=== PATIENT | male | born 1950 | race Caucasian/White ===

== ENCOUNTER 2018-09-27 07:41 | Inpatient (IN) | payer OTHER ==
[~2018-09-27] VITALS: Ht 177.8 cm; Wt 108.0 kg
--- NOTE | 2018-09-27 07:54 | NUR ---
PTE REFIERE REFIERE TNER DIFICULTAD RESPIRATORIA DESDE EDD.
[2018-09-27] MEDS ORDERED: ISOSORBIDE DINI30 MG (07:56)
[2018-09-27] MEDS ORDERED: PREDNISOLONE SO10 MG (07:57)
[2018-09-27] MEDS ORDERED: CARVEDILOL12.5 MG (07:58)
[2018-09-27] MEDS ORDERED: ALLOPURINOL100 MG (07:58)
[2018-09-27] MEDS ORDERED: ATORVASTATIN CA40 MG (07:58)
[2018-09-27] MEDS ORDERED: ALDACTONE25 MG (07:59)
[2018-09-27] MEDS ORDERED: FUROSEMIDE20 MG (07:59)
[2018-09-27] MEDS ORDERED: COZAAR25 MG (08:00)
[2018-09-27] MEDS ORDERED: COUMADIN5 MG (08:00)
[2018-09-27] MEDS ORDERED: CILOSTAZOL100 MG (08:01)
[2018-09-27] MEDS ORDERED: SYNTHROID150 MCG (08:01)
[2018-09-27] MEDS ORDERED: MAXIMUM D310000 UNIT (08:01)
--- NOTE | 2018-09-27 08:43 | NUR ---
EVALUADO POR EL SE ORIENTA SOBRE TRAAMIENTO MEDICO Y LA UNIDAD DE CHEST PAIN, ALERTA, ORIENTADO POR GENNARO. CONECTADO A MONITOR CARDIACO. SE LE EXTRAEN MUESTRAS DE SAE Y SE ENVIAN AL LABORATORIO. SE MANTIENE EN OBSERVACION.
--- NOTE | 2018-09-27 15:18 | NUR ---
SE RECIBE PTE MASCULINO ALERTA Y ORIENTADO X3,ACOMPANADO DE FAMILIAR EN CAMA #18 CPU ER,CONECTADO A MONITOR CARDIACO EARLE,CON 2 H/L PATENTES LIBRES DE EDEMA Y ENROJECIMIENTO,SE CON .45SS@75 Y DRIP TRIDIL@6ML/HR,SE REALIZA B/P MANUAL CON RESULTADO DE 180/95,SE MANTIENE CON GREEN,Y SE MANTIENE PTE EN OBSERVACION POR CAMBIOS.
[2018-09-29] MEDS ORDERED: LOSARTAN POTASS50 MG PO (12:40)
[2018-09-29] MEDS ORDERED: Coreg 12.5MG TABLET PO (12:40)
[2018-09-29] MEDS ORDERED: LASIX20 MG PO (12:40)
[2018-09-29] MEDS ORDERED: SPIRONOLACTONE25 MG PO (12:40)
[2018-09-29] MEDS ORDERED: LIPITOR40 MG PO (12:40)
[2018-09-29] MEDS ORDERED: ZYLOPRIM100 M1 PO (12:40)
[2018-09-29] MEDS ORDERED: CILOSTAZOL100 MG PO (12:40)
[2018-09-29] MEDS ORDERED: LEVOTHYROXINE150 MCG PO (12:40)
[2018-09-29] MEDS ORDERED: COUMADIN5 MG PO (12:40)
[2018-09-29] MEDS ORDERED: ISOSORBIDE MONO30 MG PO (12:40)
[2018-09-29] MEDS ORDERED: POM (MEDICAMENTO EN PO (12:40)
[2018-09-29] MEDS ORDERED: PREDNISONE10 MG PO (12:40)
== END 2018-09-29 15:26 | disposition home or self-care (01) | DRG 291 ==
LOC: ER 07:41 → MEDJ 19:15 → SEC-K 19:15 → MEDI 19:56 → MEDJ 19:56
PROVIDERS: ADMIT Internal Medicine
PROC: 4A12X4Z Monitoring of Cardiac Electrical Activity, External Approach (ICD-10-PCS; principal; 2018-09-27)
PROC: 4A033R1 Measurement of Arterial Saturation, Peripheral, Percutaneous Approach (ICD-10-PCS; 2018-09-27)
PROC: B246ZZZ Ultrasonography of Right and Left Heart (ICD-10-PCS; 2018-09-27)
PROC: 3E0F7GC Introduction of Other Therapeutic Substance into Respiratory Tract, Via Natural or Artificial Opening (ICD-10-PCS; 2018-09-27)
DX: I13.0 Hypertensive heart and chronic kidney disease with heart failure and stage 1 through stage 4 chronic kidney disease, or unspecified chronic kidney disease (principal); I50.23 Acute on chronic systolic (congestive) heart failure; N17.8 Other acute kidney failure; N18.9 Chronic kidney disease, unspecified

== ENCOUNTER 2021-12-11 13:31 | Outpatient (CLI) | payer OTHER ==
[~2021-12-11 13:31] MED LIST: ALDACTONE25 MG; ALLOPURINOL100 MG; ATORVASTATIN CA40 MG; CARVEDILOL12.5 MG; CILOSTAZOL100 MG; CILOSTAZOL100 MG PO; COUMADIN5 MG; COUMADIN5 MG PO; COZAAR25 MG; Coreg 12.5MG TABLET PO; FUROSEMIDE20 MG; ISOSORBIDE DINI30 MG; ISOSORBIDE MONO30 MG PO; LASIX20 MG PO; LEVOTHYROXINE150 MCG PO; LIPITOR40 MG PO; LOSARTAN POTASS50 MG PO; MAXIMUM D310000 UNIT; POM (MEDICAMENTO EN PO; PREDNISOLONE SO10 MG; PREDNISONE10 MG PO; SPIRONOLACTONE25 MG PO; SYNTHROID150 MCG; ZYLOPRIM100 M1 PO
== END 2021-12-11 13:34 | disposition home or self-care (01) ==
LOC: SONOGRAMA 13:31
PROVIDERS: ATTEND Internal Medicine Nephrology
DX: N18.4 Chronic kidney disease, stage 4 (severe) (principal); N05.1 Unspecified nephritic syndrome with focal and segmental glomerular lesions; I73.9 Peripheral vascular disease, unspecified; N28.1 Cyst of kidney, acquired; R16.0 Hepatomegaly, not elsewhere classified; E88.09 Other disorders of plasma-protein metabolism, not elsewhere classified; R80.9 Proteinuria, unspecified; E78.5 Hyperlipidemia, unspecified; I12.9 Hypertensive chronic kidney disease with stage 1 through stage 4 chronic kidney disease, or unspecified chronic kidney disease; E66.9 Obesity, unspecified

== ENCOUNTER 2022-04-15 13:41 | Outpatient (CLI) | payer OTHER | END 2022-04-15 13:53 | disposition home or self-care (01) | LOC: LAB 13:41 → EKG 13:41 | DX: I11.9 Hypertensive heart disease without heart failure (principal) ==

== ENCOUNTER 2022-08-15 12:50 | Inpatient (IN) | payer OTHER ==
[~2022-08-15] VITALS: Ht 177.8 cm; Wt 113.4 kg
[2022-08-15] MEDS ORDERED: PEPCID AC20 MG PO (13:30)
[2022-08-15] MEDS ORDERED: AUGMENTIN125 MG/5 M (13:31)
[2022-08-15] MEDS ORDERED: ABATINEX680 MG PO (13:31)
== END 2022-08-23 14:20 | disposition home or self-care (01) | DRG 982 ==
LOC: ER 12:50 → SEC-K 18:37 → MEDI 18:37
PROVIDERS: ADMIT Internal Medicine; ATTEND Internal Medicine
PROC: 0JDN0ZZ Extraction of Right Lower Leg Subcutaneous Tissue and Fascia, Open Approach (ICD-10-PCS; principal; 2022-08-17)
PROC: 0JDN0ZZ Extraction of Right Lower Leg Subcutaneous Tissue and Fascia, Open Approach (ICD-10-PCS; 2022-08-21)
DX: E11.622 Type 2 diabetes mellitus with other skin ulcer (principal); L97.818 Non-pressure chronic ulcer of other part of right lower leg with other specified severity; L03.115 Cellulitis of right lower limb; B96.5 Pseudomonas (aeruginosa) (mallei) (pseudomallei) as the cause of diseases classified elsewhere; I13.0 Hypertensive heart and chronic kidney disease with heart failure and stage 1 through stage 4 chronic kidney disease, or unspecified chronic kidney disease; N17.9 Acute kidney failure, unspecified; E11.22 Type 2 diabetes mellitus with diabetic chronic kidney disease; E11.65 Type 2 diabetes mellitus with hyperglycemia; I50.9 Heart failure, unspecified; E03.8 Other specified hypothyroidism; E66.01 Morbid (severe) obesity due to excess calories; N18.9 Chronic kidney disease, unspecified; E11.51 Type 2 diabetes mellitus with diabetic peripheral angiopathy without gangrene; J44.9 Chronic obstructive pulmonary disease, unspecified; F17.200 Nicotine dependence, unspecified, uncomplicated; I48.0 Paroxysmal atrial fibrillation

== ENCOUNTER 2023-01-14 16:05 | Inpatient (IN) | payer OTHER ==
[~2023-01-14] VITALS: Ht 167.6 cm; Wt 81.6 kg
[~2023-01-14 16:05] MED LIST changes: +ABATINEX680 MG PO; +AUGMENTIN125 MG/5 M; +PEPCID AC20 MG PO
--- NOTE | 2023-01-14 16:42 | NUR ---
PACIENTE ALERTA Y ORIENTADO POR 3 EN COMPANIA DE FAMILIAR QUIEN REFIERE CELULITIS EN MELANIE DIAZ. ADEMAS DICE QUE TIENE LOS NIVELES DE VANCOMICION ALTOS.
--- NOTE | 2023-01-14 17:27 | NUR ---
MS KAYCE ORIENTA PTE SOBRE TX MEDICO EL CUAL REFIERE ENTENDER.SE LE EXTRAEN MUESTRAS BAJO MEDIDAS ASEPTICAS,SE CANALIZA Y SE COLOCAN FLUIDOS DE MANTENIMIENTO.
== END 2023-01-27 19:00 | disposition home or self-care (01) | DRG 571 ==
LOC: ER 16:05 → MEDI 20:04 → MEDJ 01-23 21:58
PROVIDERS: ADMIT Specialist; ATTEND Specialist
PROC: 0JBN0ZZ Excision of Right Lower Leg Subcutaneous Tissue and Fascia, Open Approach (ICD-10-PCS; principal; 2023-01-15)
PROC: BQ37ZZZ Magnetic Resonance Imaging (MRI) of Right Knee (ICD-10-PCS; 2023-01-15)
PROC: 2W1QX6Z Compression of Right Lower Leg using Pressure Dressing (ICD-10-PCS; 2023-01-17)
PROC: 0JDN0ZZ Extraction of Right Lower Leg Subcutaneous Tissue and Fascia, Open Approach (ICD-10-PCS; 2023-01-22)
PROC: 8E0ZXY6 Isolation (ICD-10-PCS; 2023-01-24)
DX: L97.819 Non-pressure chronic ulcer of other part of right lower leg with unspecified severity (principal); A04.72 Enterocolitis due to Clostridium difficile, not specified as recurrent; L03.115 Cellulitis of right lower limb; N18.4 Chronic kidney disease, stage 4 (severe); L02.415 Cutaneous abscess of right lower limb; B95.61 Methicillin susceptible Staphylococcus aureus infection as the cause of diseases classified elsewhere; I73.89 Other specified peripheral vascular diseases; I13.10 Hypertensive heart and chronic kidney disease without heart failure, with stage 1 through stage 4 chronic kidney disease, or unspecified chronic kidney disease; E66.01 Morbid (severe) obesity due to excess calories; Z68.34 Body mass index [BMI] 34.0-34.9, adult; E03.9 Hypothyroidism, unspecified; I25.10 Atherosclerotic heart disease of native coronary artery without angina pectoris; I48.0 Paroxysmal atrial fibrillation; Z79.01 Long term (current) use of anticoagulants; Z95.828 Presence of other vascular implants and grafts
CPT/HCPCS: 73725

== ENCOUNTER 2023-03-04 12:00 | Inpatient (IN) | payer OTHER ==
[~2023-03-04] VITALS: Ht 177.8 cm; Wt 111.1 kg
--- NOTE | 2023-03-04 12:32 | NUR ---
SE RECIBE PTE ALERTA Y ORIENTADO X3 EL MISMO REFIERE PRESENTAR CELULITIS EN AMBAS DIAMOND, SE OBSERVA MANO IZQUIERDA CON EDEMAS PRESENTE Y HEMATOMA EN MANO DERECHA.
--- NOTE | 2023-03-04 14:48 | NUR ---
PTE ALERTA,ESTABLE Y ORIENTADO.SE EDUCA SOBRE EL TRATAMIENTO QUE RECIBIRA EN EL HOSPITAL Y [facility] REFIERE ENTENDER.SE LE DIEGO MUESTRAS DE SAE Y SE LE ADMINISTRA MEDICAMENTOS HAL [facility]DEN MEDICA
== END 2023-03-07 14:07 | disposition home or self-care (01) | DRG 603 ==
LOC: ER 12:00 → MEDI 21:48
PROVIDERS: Emergency Medicine; Internal Medicine Infectious Disease; ADMIT Specialist; ATTEND Specialist
PROC: B54MZZZ Ultrasonography of Right Upper Extremity Veins (ICD-10-PCS; 2023-03-04)
PROC: BP3LZZZ Magnetic Resonance Imaging (MRI) of Right Wrist (ICD-10-PCS; principal; 2023-03-05)
DX: L03.113 Cellulitis of right upper limb (principal); L97.819 Non-pressure chronic ulcer of other part of right lower leg with unspecified severity; I12.9 Hypertensive chronic kidney disease with stage 1 through stage 4 chronic kidney disease, or unspecified chronic kidney disease; N18.9 Chronic kidney disease, unspecified; Z22.321 Carrier or suspected carrier of Methicillin susceptible Staphylococcus aureus; I10 Essential (primary) hypertension; E66.01 Morbid (severe) obesity due to excess calories; Z68.35 Body mass index [BMI] 35.0-35.9, adult
CPT/HCPCS: 73218

== ENCOUNTER 2023-08-19 12:27 | Inpatient (IN) | payer OTHER ==
[~2023-08-19] VITALS: Ht 180.3 cm; Wt 104.3 kg
--- NOTE | 2023-08-19 13:29 | NUR ---
PACIENTE ALERTA Y ORIENTADO X3. SE ENCUENTRA ACOMPANADO DE ESPOSA. PACIENTE REFIERE ASFIXIA Y PRESENTA SATURACION BAJA (80%). PACIENTE REFIERE QUE ES PACIENTE RENAL E HIPERTENSO. ADEMAS, REFIERE QUE NO ES PACIENTE DE COPD. SE LE REALIZA EKG, SE ESTIMAN VITALES Y SE UBICA A PACIENTE EN AREA DE CUIDADO CRITICO.
[2023-08-19] MEDS ORDERED: METHYLPREDNISOLONE SOD SUCC 125 MG VIAL IV STA ×2 (14:25→14:33)
[2023-08-19] MEDS ORDERED: FAMOtidine 10 MG/ML (4ML VIAL) IV STA (14:31)
--- NOTE | 2023-08-19 14:37 | NUR ---
SE RECIBE PACIENTE MASCULINO ALERTA Y ORIENTADO EN PERSONA. SE LE COLOCA EN CAMA #1 CON BARANDAS ELEVADAS. SE CONECTA A MONITOR CARDICO, OXIMETRIA DE PULSO Y CANULA NASAL A 3LT/MIN. SE CANALIZA EN BRAZO DERECHO CON ANGIO #18 Y SE LE COLOCA HEPARIN LOCK Y LA SEGUNDA VENOPUNCION SE CANALIZA CON ANGIO #20 Y SE LE COLOCA HEPARIN LOCK, PATENTES LIBRES DE EDEMA Y ENROJECIMIENTO. SE LE DIEGO LAS MUETRAS Y SE LE ADMNISTRAN LOS MEDICAMENTOS HAL LA ORDEN MEDICA. SE LE INSERTA GREEN CON MEDIDAS AEPTICAS Y ESTERILES #16, SE OBSERVA ORINA COLOR MEG. SE OBSERVA POR CAMBIOS.
[2023-08-19] MEDS ORDERED: MAGNESIUM SULFATE 1,000 MG in 0.9 % SODIUM CHLORIDE 50 ML IV ONE (14:45)
[2023-08-19] MEDS ORDERED: LEVALBUTEROL HCL 1.25 MG/3 ML SOLUTION IH SCH ×2 (14:45→16:00)
[2023-08-19 14:46] LABS: ABG PH 7.226 (7.35-7.45)
[2023-08-19 14:47] LABS: ABG pCO2 70.2 mmHg (35-45)
[2023-08-19 14:48] LABS: ABG PO2 39.5 mmHg (80-100); BASE EXCESS -1.1 mmol/l; BICARBONATE 28.5 mmol/l (23-25); SaO2 62.3 %; Tco2 30.6 mmol/l; o2 21 %
[2023-08-19 14:49] LABS: allen test SATISFACTORY; puncture site RADIAL RIGHT
[2023-08-19 15:00] LABS: HEMATOCRIT 45.7 % (39.0-48.0); HEMOGLOBIN 14.5 g/dL (13-16.00); MEAN CELL VOLUME 101.7 fL (80.0-100.00); MEAN CORPUSCULAR HEMOGLOBIN 32.3 pg (27.00-32.0); MEAN CORPUSCULAR HGB CONC 31.7 g/dl (32.0-36.0); PLATELET COUNT 338 K/uL (150-450); RED BLOOD COUNT 4.49 M/uL (4.00-6.00); RED CELL DISTRIBUTION WIDTH 16.2 % (11.5-14.5)
--- NOTE | 2023-08-19 15:00 | NUR ---
SE RECIBE PACIENTE DE TURNO ANTERIOR ALERTA Y ORIENTADO X3, CONECTADO A MONITOR CARDIACO Y OXIMETRIA DE PULSO. SE OBSERVA CON CANULA NASAL A 3LT/MIN; PRESENTANDO SPO2 82%. CANALIZADO X2 EN BRAZO DERECHO; LAS MISMAS SE OBSERVAN PATENTES,LIBRES DE EDEMA O ERITEMA. AL MOMENTO SIN IV FLUIDS. GREEN A GRAVEDAD CON EGRESO URINARIO APROXIMADO DE 200ML COLOR AMARILLO WILBER.
[2023-08-19 15:16] LABS: ALBUMIN 2.9 gm/dL (3.4-5.0); BILIRUBIN TOTAL 0.39 mg/dL (0.3-1.2); BILIRUBIN,CONJUGATED 0.13 mg/dL (0.0-0.2); BILIRUBIN,UNCONJUGATED 0.26 mg/dL (0.0-0.6); CALCIUM 9.2 mg/dL (8.5-10.1); GFR 13.08; GLOBULINA 5.3 G/DL (2.4-3.5); POTASSIUM 4.72 mEq/L (3.5-5.1); TOTAL PROTEIN 8.2 gm/dL (6.4-8.2)
[2023-08-19 15:36] LABS: CREATININE SERUM 4.46 mg/dL (0.70-1.30)
[2023-08-19 15:43] LABS: PROTHROMBIN TIME 11.1 SECONDS (9.0-11.5)
[2023-08-19 15:44] LABS: INR 1.06; PARTIAL THROMBOPLASTIN TIME 31.5 SECONDS (22.0-34.0)
[2023-08-19 15:47] LABS: URINE APPEARANCE Clear; URINE BILIRRUBIN Negative (NEGATIVE); URINE BLOOD Negative; URINE COLOR Yellow; URINE LEUKOCYTE Negative; URINE NITRATE Negative; URINE PROTEIN >=1000 (NEGATIVE); URINE UROBILINOGEN 0.2 E.U./dl
[2023-08-19 15:51] LABS: URINE BACTERIA 28.9 uL (0.0-1933); URINE EPITHELIAL CELLS 5.2 uL (0.0-38.8); URINE GLUCOSE 100 MG/DL (NEGATIVE); URINE WBC 14.6 uL (0.0-23.2)
[2023-08-19] MEDS ORDERED: cloNIDine HCL 0.2 MG TABLET PO ONE (16:00)
[2023-08-19] MEDS ORDERED: NITROGLYCERIN IN 5 % DEXTROSE 250 ML IV SCH (17:30)
[2023-08-19 17:58] LABS: CALCIUM 8.9 mg/dL (8.5-10.1); POTASSIUM 5.11 mEq/L (3.5-5.1)
--- NOTE | 2023-08-19 18:00 | NUR ---
SE COLECTAN MUESTRAS DE LABORATORIO HAL ORDEN MEDICA Y MEDIANTE MEDIDAS ASEPTICAS. SE COMIENZA JULI WARD.
[2023-08-19 18:01] LABS: GFR 13.87
[2023-08-19 18:06] LABS: CREATININE SERUM 4.24 mg/dL (0.70-1.30)
[2023-08-19] MEDS ORDERED: IPRATROPIUM BROMIDE 0.5 MG/2.5 ML AMPUL.NEB IH SCH (18:37)
[2023-08-19] MEDS ORDERED: ATORVASTATIN CALCIUM 40 MG TABLET PO SCH (18:41)
[2023-08-19] MEDS ORDERED: ACETAMINOPHEN 500 MG GEL..CAP PO PRN (18:45)
[2023-08-19] MEDS ORDERED: ONDANSETRON HCL 4 MG in 0.9 % SODIUM CHLORIDE 50 ML IV PRN (18:45)
[2023-08-19] MEDS ORDERED: INSULIN LISPRO 1,000 UNIT/10 ML UNITS SUBCUTANEO PRN (19:00)
[2023-08-19] MEDS ORDERED: DEXTROSE 50 % IN WATER 0.5 G/ML DISP.SYRIN IV PRN (19:00)
[2023-08-19] MEDS ORDERED: PROPOFOL 10,000 MCG/ML VIAL IV STA (19:21)
[2023-08-19] MEDS ORDERED: PROPOFOL 100 ML IV SCH (19:30)
[2023-08-19] MEDS ORDERED: ENOXAPARIN SODIUM 100 MG/ML SYRINGE SUBCUTANEO SCH (21:00)
[2023-08-19 22:15] LABS: ABG PH 7.102 (7.35-7.45)
[2023-08-19 22:16] LABS: ABG PO2 82.8 mmHg (80-100); ABG pCO2 92.4 mmHg (35-45); BASE EXCESS -4.2 mmol/l; BICARBONATE 28.1 mmol/l (23-25); SaO2 90.1 %
[2023-08-19 22:17] LABS: allen test SATISFACTORY; o2 100 %; puncture site RADIAL RIGHT
[2023-08-19 22:17] LABS: ABG PH 7.092 (7.35-7.45)
[2023-08-19 22:18] LABS: BASE EXCESS -4.3 mmol/l; BICARBONATE 28.3 mmol/l (23-25); SaO2 89.6 %; Tco2 31.2 mmol/l
[2023-08-19 22:20] LABS: allen test SATISFACTORY; o2 100 %; puncture site RADIAL RIGHT
[2023-08-19 22:20] LABS: ABG PH 7.167 (7.35-7.45); ABG PO2 230.9 mmHg (80-100); ABG pCO2 66.3 mmHg (35-45)
[2023-08-19 22:21] LABS: BASE EXCESS -6.4 mmol/l; BICARBONATE 23.5 mmol/l (23-25); SaO2 99.5 %; Tco2 25.5 mmol/l
[2023-08-19 22:22] LABS: allen test SATISFACTORY; o2 100 %; puncture site RADIAL RIGHT
[2023-08-20] MEDS ORDERED: FUROsemide 20 MG/2 ML VIAL IV SCH ×2 (01:00→09:00)
[2023-08-20] MEDS ORDERED: LEVOTHYROXINE SODIUM 150 MCG TABLET PO SCH (06:00)
[2023-08-20] MEDS ORDERED: HYDROCORTISONE SODIUM SUCC/PF 100 MG VIAL IV STA (07:12)
[2023-08-20 08:41] LABS: ABG PH 7.371 (7.35-7.45); ABG PO2 88.8 mmHg (80-100); ABG pCO2 38.7 mmHg (35-45); BASE EXCESS -2.9 mmol/l; SaO2 96.4 %; Tco2 23.1 mmol/l
[2023-08-20 08:42] LABS: allen test SATISFACTORY; o2 60 %; puncture site RADIAL RIGHT
[2023-08-20] MEDS ORDERED: FAMOTIDINE/PF 20 MG in 0.9 % SODIUM CHLORIDE 8 ML IV PUSH SCH (09:00)
[2023-08-20] MEDS ORDERED: PREDNISONE 10 MG TABLET PO SCH (09:00)
[2023-08-20] MEDS ORDERED: ENOXAPARIN SODIUM 30 MG/0.3 ML SYRINGE SUBCUTANEO SCH (09:00)
[2023-08-20] MEDS ORDERED: HYDROCORTISONE SODIUM SUCC/PF 100 MG VIAL IV SCH ×2 (12:00→17:00)
[2023-08-20] MEDS ORDERED: CEFEPIME HCL 1,000 MG VIAL IV SCH (14:17)
[2023-08-20] MEDS ORDERED: LINEZOLID IN DEXTROSE 5% 300 ML IV SCH (17:00)
[2023-08-21 06:22] LABS: HEMATOCRIT 37.1 % (39.0-48.0); HEMOGLOBIN 12.2 g/dL (13-16.00); MEAN CELL VOLUME 97.4 fL (80.0-100.00); MEAN CORPUSCULAR HEMOGLOBIN 32.1 pg (27.00-32.0); PLATELET COUNT 290 K/uL (150-450); RED BLOOD COUNT 3.81 M/uL (4.00-6.00); RED CELL DISTRIBUTION WIDTH 15.6 % (11.5-14.5)
[2023-08-21 07:14] LABS: ALBUMIN 2.4 gm/dL (3.4-5.0); BILIRUBIN TOTAL 0.4 mg/dL (0.3-1.2); CALCIUM 8.6 mg/dL (8.5-10.1); GFR 12.75; GLOBULINA 3.2 G/DL (2.4-3.5); POTASSIUM 4.33 mEq/L (3.5-5.1); TOTAL PROTEIN 5.6 gm/dL (6.4-8.2)
[2023-08-21 07:25] LABS: ABG PH 7.456 (7.35-7.45); ABG pCO2 32.7 mmHg (35-45)
[2023-08-21 07:26] LABS: ABG PO2 96.3 mmHg (80-100); BASE EXCESS -0.5 mmol/l; BICARBONATE 22.5 mmol/l (23-25); SaO2 97.8 %; Tco2 23.5 mmol/l; allen test SATISFACTORY; o2 60 %; puncture site RADIAL LEFT
[2023-08-21 07:37] LABS: CREATININE SERUM 4.56 mg/dL (0.70-1.30)
[2023-08-21] MEDS ORDERED: CHLORHEXIDINE GLUCONATE 120 ML BOTTLE TOP ONE (08:29)
[2023-08-21] MEDS ORDERED: hydrALAZINE HCL 20 MG VIAL IV PRN (10:30)
[2023-08-21] MEDS ORDERED: HYDROCORTISONE SODIUM SUCC/PF 100 MG VIAL IV SCH (17:00)
[2023-08-21] MEDS ORDERED: HEPARIN SODIUM,PORCINE 500 UNITS/5 ML VIAL IV ONE ×2 (22:54→23:37)
[2023-08-21] MEDS ORDERED: LIDOCAINE HCL 100 MG/10ML VIAL ONE (23:01)
[2023-08-22] MEDS ORDERED: LEVOTHYROXINE SODIUM 175 MCG TABLET PO SCH (06:00)
[2023-08-22 06:24] LABS: ABG PH 7.425 (7.35-7.45); ABG PO2 170.8 mmHg (80-100); ABG pCO2 35.6 mmHg (35-45); BICARBONATE 22.8 mmol/l (23-25); SaO2 99.5 %; Tco2 23.9 mmol/l; allen test SATISFACTORY; o2 60 %; puncture site RADIAL LEFT
[2023-08-22 07:18] LABS: HEMATOCRIT 34.6 % (39.0-48.0); HEMOGLOBIN 11.5 g/dL (13-16.00); MEAN CELL VOLUME 97.6 fL (80.0-100.00); MEAN CORPUSCULAR HEMOGLOBIN 32.4 pg (27.00-32.0); MEAN CORPUSCULAR HGB CONC 33.2 g/dl (32.0-36.0); PLATELET COUNT 276 K/uL (150-450); RED BLOOD COUNT 3.55 M/uL (4.00-6.00); RED CELL DISTRIBUTION WIDTH 16.1 % (11.5-14.5)
[2023-08-22 07:30] LABS: CALCIUM 8.2 mg/dL (8.5-10.1); GFR 12.72; POTASSIUM 4.03 mEq/L (3.5-5.1)
[2023-08-22 07:37] LABS: CREATININE SERUM 4.57 mg/dL (0.70-1.30)
[2023-08-22] MEDS ORDERED: ENOXAPARIN SODIUM 100 MG/ML SYRINGE SUBCUTANEO SCH (09:00)
[2023-08-22] MEDS ORDERED: CHLORHEXIDINE GLUCONATE 15ML BRUSH KIT MM SCH (09:00)
[2023-08-22] MEDS ORDERED: POLYVINYL ALCOHOL 15 ML DROPS OP SCH (09:00)
[2023-08-22 21:58] LABS: PLEURAL FLUID APPEARANCE CRYSTAL CLEAR; PLEURAL FLUID COLOR YELLOW
[2023-08-22 22:10] LABS: TP PLEURAL FLUID 2.4 g/dl
[2023-08-22 22:50] LABS: MONONUCLEAR 88 %; POLYMORPHONUCLEAR 12 %
[2023-08-23 07:00] LABS: ABG PH 7.429 (7.35-7.45); ABG PO2 77.2 mmHg (80-100); ABG pCO2 33.5 mmHg (35-45); BASE EXCESS -1.8 mmol/l; BICARBONATE 21.6 mmol/l (23-25); Tco2 22.7 mmol/l; o2 50 %
[2023-08-23 07:01] LABS: allen test SATISFACTORY; puncture site RADIAL LEFT
[2023-08-23 07:03] LABS: SaO2 95.6 %
[2023-08-24 06:40] LABS: ABG PH 7.395 (7.35-7.45); ABG PO2 101.4 mmHg (80-100); ABG pCO2 37.8 mmHg (35-45); BASE EXCESS -1.9 mmol/l
[2023-08-24 06:41] LABS: BICARBONATE 22.6 mmol/l (23-25); Tco2 23.8 mmol/l; allen test SATISFACTORY; o2 40 %; puncture site RADIAL LEFT
[2023-08-24 06:43] LABS: SaO2 97.7 %
[2023-08-24 07:42] LABS: ALBUMIN 2.2 gm/dL (3.4-5.0); BILIRUBIN TOTAL 0.46 mg/dL (0.3-1.2); CALCIUM 7.9 mg/dL (8.5-10.1); GFR 14.42; POTASSIUM 3.74 mEq/L (3.5-5.1); TOTAL PROTEIN 5.2 gm/dL (6.4-8.2)
[2023-08-24 08:24] LABS: CREATININE SERUM 4.1 mg/dL (0.70-1.30)
[2023-08-24 08:57] LABS: HEMATOCRIT 30.9 % (39.0-48.0); HEMOGLOBIN 10.4 g/dL (13-16.00); MEAN CELL VOLUME 96.7 fL (80.0-100.00); MEAN CORPUSCULAR HEMOGLOBIN 32.6 pg (27.00-32.0); MEAN CORPUSCULAR HGB CONC 33.7 g/dl (32.0-36.0); PLATELET COUNT 166 K/uL (150-450); RED CELL DISTRIBUTION WIDTH 15.2 % (11.5-14.5)
[2023-08-24 11:52] LABS: ABG PH 7.354 (7.35-7.45); ABG PO2 92.7 mmHg (80-100); ABG pCO2 42.3 mmHg (35-45); BASE EXCESS -2.4 mmol/l; BICARBONATE 23.1 mmol/l (23-25); SaO2 96.6 %; Tco2 24.4 mmol/l; allen test SATISFACTORY; puncture site RADIAL RIGHT
[2023-08-24 11:53] LABS: o2 50 %
[2023-08-24] MEDS ORDERED: KETOROLAC TROMETHAMINE 30 MG VIAL IV PRN (20:45)
[2023-08-25 05:41] LABS: HEMATOCRIT 30.8 % (39.0-48.0); HEMOGLOBIN 10.4 g/dL (13-16.00); MEAN CELL VOLUME 98.1 fL (80.0-100.00); MEAN CORPUSCULAR HGB CONC 33.7 g/dl (32.0-36.0); PLATELET COUNT 189 K/uL (150-450); RED BLOOD COUNT 3.14 M/uL (4.00-6.00); RED CELL DISTRIBUTION WIDTH 14.8 % (11.5-14.5)
[2023-08-25 07:00] LABS: CALCIUM 7.9 mg/dL (8.5-10.1); GFR 12.59; POTASSIUM 3.88 mEq/L (3.5-5.1)
[2023-08-25 07:14] LABS: CREATININE SERUM 4.61 mg/dL (0.70-1.30)
[2023-08-25] MEDS ORDERED: METOPROLOL SUCCINATE 25 MG TAB.SR.24H PO SCH (09:00)
[2023-08-25] MEDS ORDERED: ISOSORBIDE DINITRATE 10 MG TABLET PO SCH (09:00)
[2023-08-25] MEDS ORDERED: NICOTINE TD SCH (12:00)
[2023-08-25] MEDS ORDERED: CLONAZEPAM 0.5 MG TABLET PO SCH (21:00)
[2023-08-26] MEDS ORDERED: PREDNISONE 10 MG TABLET PO SCH (09:00)
[2023-08-27 17:32] LABS: INR 1.08; PARTIAL THROMBOPLASTIN TIME 35.2 SECONDS (22.0-34.0); PROTHROMBIN TIME 11.3 SECONDS (9.0-11.5)
[2023-08-27 21:58] LABS: ABG PH 7.368 (7.35-7.45); ABG PO2 79.3 mmHg (80-100); ABG pCO2 40.7 mmHg (35-45)
[2023-08-27 21:59] LABS: BASE EXCESS -2.3 mmol/l; BICARBONATE 22.9 mmol/l (23-25); Tco2 24.1 mmol/l; allen test SATISFACTORY; o2 21 %; puncture site RADIAL LEFT
[2023-08-28] MEDS ORDERED: HEPARIN SODIUM,PORCINE 500 UNITS/5 ML VIAL IV ONE (19:42)
[2023-08-28] MEDS ORDERED: HEPARIN SODIUM,PORCINE 5,000 UNITS/ML VIAL IV ONE (21:00)
[2023-08-29 06:19] LABS: HEMATOCRIT 29.6 % (39.0-48.0); HEMOGLOBIN 9.8 g/dL (13-16.00); MEAN CELL VOLUME 97.4 fL (80.0-100.00); MEAN CORPUSCULAR HEMOGLOBIN 32.1 pg (27.00-32.0); PLATELET COUNT 202 K/uL (150-450); RED BLOOD COUNT 3.04 M/uL (4.00-6.00); RED CELL DISTRIBUTION WIDTH 15.1 % (11.5-14.5)
[2023-08-29 07:19] LABS: ALBUMIN 2.5 gm/dL (3.4-5.0); BILIRUBIN TOTAL 0.97 mg/dL (0.3-1.2); CALCIUM 8.5 mg/dL (8.5-10.1); GFR 13.54; GLOBULINA 3.5 G/DL (2.4-3.5); POTASSIUM 3.8 mEq/L (3.5-5.1)
[2023-08-29 07:56] LABS: CREATININE SERUM 4.33 mg/dL (0.70-1.30)
[2023-08-29] MEDS ORDERED: TUBERCULIN,PURIF.PROT.DERIV. 10 SKIN.TEST SKIN.TEST ID NR (08:00)
[2023-08-29] MEDS ORDERED: PREDNISONE 5 MG TABLET PO SCH (09:00)
[2023-08-29] MEDS ORDERED: ALPRAzolam 0.25 MG TABLET PO SCH (09:00)
[2023-08-29 12:19] LABS: ABG PH 7.401 (7.35-7.45); ABG pCO2 37.4 mmHg (35-45); BASE EXCESS -1.6 mmol/l; BICARBONATE 22.7 mmol/l (23-25); Tco2 23.8 mmol/l; allen test SATISFACTORY; o2 100 %; puncture site RADIAL LEFT
[2023-08-29] MEDS ORDERED: VANCOMYCIN HCL 1,000 MG VIAL IV ONE (14:15)
[2023-08-29 16:45] LABS: CKMB 3.6 NG/ML (0.5-3.6)
[2023-08-29] MEDS ORDERED: VANCOMYCIN HCL 500 MG VIAL IV SCH (17:00)
[2023-08-29] MEDS ORDERED: MEROPENEM 500 MG/VIAL VIAL IV SCH (17:00)
[2023-08-30 07:26] LABS: HEMATOCRIT 26.7 % (39.0-48.0); MEAN CELL VOLUME 97.7 fL (80.0-100.00); MEAN CORPUSCULAR HEMOGLOBIN 32.8 pg (27.00-32.0); MEAN CORPUSCULAR HGB CONC 33.6 g/dl (32.0-36.0); PLATELET COUNT 229 K/uL (150-450); RED BLOOD COUNT 2.74 M/uL (4.00-6.00)
[2023-08-30] MEDS ORDERED: SENNOSIDES 8.8 MG/5 ML ML PO SCH (11:00)
[2023-08-30] MEDS ORDERED: LACTULOSE 20 G/30 ML BLIST.PACK PO SCH (11:19)
[2023-08-30] MEDS ORDERED: MAGNESIUM HYDROXIDE 30 ML BLIST.PACK PO SCH (11:20)
[2023-08-30] MEDS ORDERED: MINERAL OIL 30 ML BLIST.PACK PO SCH (11:20)
[2023-08-30 12:11] LABS: hav igm Negative (Negative); hcv Non Reactive (Non Reactive); hep b c Negative (Negative)
[2023-08-30 12:25] LABS: ABG PH 7.391 (7.35-7.45); ABG PO2 225.6 mmHg (80-100); ABG pCO2 34.8 mmHg (35-45); BASE EXCESS -3.5 mmol/l; BICARBONATE 20.7 mmol/l (23-25); SaO2 99.8 %; Tco2 21.7 mmol/l
[2023-08-30 12:26] LABS: allen test SATISFACTORY; o2 60 %; puncture site RADIAL LEFT
[2023-08-31] MEDS ORDERED: 0.9 % SODIUM CHLORIDE 1,000 ML IV SCH (11:45)
[2023-08-31] MEDS ORDERED: COSYNTROPIN 0.25 MG VIAL IV ONE (12:00)
[2023-08-31] MEDS ORDERED: CLONAZEPAM 0.5 MG TABLET PO SCH (21:00)
[2023-08-31] MEDS ORDERED: PREDNISONE 10 MG TABLET PO STA (21:31)
[2023-09-01] MEDS ORDERED: PREDNISONE 5 MG TABLET PO SCH (09:00)
[2023-09-01] MEDS ORDERED: PREDNISONE 10 MG TABLET PO SCH (09:00)
[2023-09-01 12:22] LABS: MEAN CELL VOLUME 98.4 fL (80.0-100.00); MEAN CORPUSCULAR HGB CONC 32.9 g/dl (32.0-36.0); PLATELET COUNT 291 K/uL (150-450); RED BLOOD COUNT 2.18 M/uL (4.00-6.00); RED CELL DISTRIBUTION WIDTH 15.2 % (11.5-14.5)
[2023-09-01 12:29] LABS: MEAN CORPUSCULAR HEMOGLOBIN 32.5 pg (27.00-32.0)
[2023-09-01 12:30] LABS: HEMATOCRIT 21.5 % (39.0-48.0)
[2023-09-01 12:32] LABS: HEMOGLOBIN 7.1 g/dL (13-16.00)
[2023-09-01 13:00] LABS: ALBUMIN 2.2 gm/dL (3.4-5.0); BILIRUBIN TOTAL 1.2 mg/dL (0.3-1.2); CALCIUM 8.3 mg/dL (8.5-10.1); GFR 8.59; GLOBULINA 3.4 G/DL (2.4-3.5); POTASSIUM 5.1 mEq/L (3.5-5.1); TOTAL PROTEIN 5.6 gm/dL (6.4-8.2)
[2023-09-01 13:47] LABS: CREATININE SERUM 6.42 mg/dL (0.70-1.30)
[2023-09-01 14:41] LABS: PLATELET ESTIMATE NORMAL (NORMAL)
[2023-09-01] MEDS ORDERED: ANIDULAFUNGIN 100 MG VIAL IV ONE (15:30)
[2023-09-01 19:58] LABS: PH,URINE 5.5 (5.0-8.0); URINE APPEARANCE Turbid; URINE BILIRRUBIN Negative (NEGATIVE); URINE BLOOD Large; URINE COLOR Dark Yellow; URINE GLUCOSE Negative (NEGATIVE); URINE LEUKOCYTE Large; URINE NITRATE Negative
[2023-09-01 20:02] LABS: HEMATOCRIT 25.3 % (39.0-48.0); MEAN CELL VOLUME 94.1 fL (80.0-100.00); MEAN CORPUSCULAR HEMOGLOBIN 31.5 pg (27.00-32.0); MEAN CORPUSCULAR HGB CONC 33.5 g/dl (32.0-36.0); PLATELET COUNT 243 K/uL (150-450); RED BLOOD COUNT 2.69 M/uL (4.00-6.00); RED CELL DISTRIBUTION WIDTH 16.7 % (11.5-14.5); URINE EPITHELIAL CELLS 189.3 uL (0.0-38.8); URINE RBC 1588.6 uL (0.0-20.8)
[2023-09-01 20:03] LABS: HEMOGLOBIN 8.5 g/dL (13-16.00)
[2023-09-01 20:15] LABS: URINE PROTEIN 300 (NEGATIVE); URINE WBC > 5548.3 uL (0.0-23.2); URINE YEAST FEW /hpf
[2023-09-02 07:08] LABS: MEAN CELL VOLUME 94.9 fL (80.0-100.00); MEAN CORPUSCULAR HGB CONC 33.5 g/dl (32.0-36.0); PLATELET COUNT 222 K/uL (150-450); RED BLOOD COUNT 2.41 M/uL (4.00-6.00); RED CELL DISTRIBUTION WIDTH 17.1 % (11.5-14.5)
[2023-09-02 07:11] LABS: HEMATOCRIT 22.9 % (39.0-48.0); MEAN CORPUSCULAR HEMOGLOBIN 31.9 pg (27.00-32.0)
[2023-09-02 07:15] LABS: HEMOGLOBIN 7.7 g/dL (13-16.00)
[2023-09-02 07:36] LABS: ALBUMIN 2.1 gm/dL (3.4-5.0); BILIRUBIN TOTAL 1.23 mg/dL (0.3-1.2); CALCIUM 7.8 mg/dL (8.5-10.1); CREATININE SERUM 3.57 mg/dL (0.70-1.30); GFR 16.91; GLOBULINA 2.9 G/DL (2.4-3.5); POTASSIUM 3.97 mEq/L (3.5-5.1)
[2023-09-02] MEDS ORDERED: ANIDULAFUNGIN 100 MG VIAL IV SCH (17:00)
[2023-09-02] MEDS ORDERED: QUETIAPINE FUMARATE 25 MG TABLET PO SCH (21:00)
[2023-09-03 06:39] LABS: HEMATOCRIT 24.5 % (39.0-48.0); MEAN CORPUSCULAR HGB CONC 33.6 g/dl (32.0-36.0); PLATELET COUNT 231 K/uL (150-450); RED BLOOD COUNT 2.52 M/uL (4.00-6.00); RED CELL DISTRIBUTION WIDTH 17.1 % (11.5-14.5)
[2023-09-03 06:42] LABS: MEAN CORPUSCULAR HEMOGLOBIN 32.5 pg (27.00-32.0)
[2023-09-03 06:43] LABS: HEMOGLOBIN 8.2 g/dL (13-16.00)
[2023-09-03] MEDS ORDERED: PREDNISONE 5 MG TABLET PO SCH (09:00)
[2023-09-03 09:02] LABS: ABG PH 7.314 (7.35-7.45); ABG PO2 152.6 mmHg (80-100); BASE EXCESS 0.4 mmol/l; BICARBONATE 27.8 mmol/l (23-25); SaO2 99.1 %; Tco2 29.5 mmol/l; allen test SATISFACTORY; o2 50 %; puncture site RADIAL LEFT
[2023-09-03 17:22] LABS: HEMATOCRIT 31.4 % (39.0-48.0); HEMOGLOBIN 10.5 g/dL (13-16.00); MEAN CORPUSCULAR HEMOGLOBIN 31.5 pg (27.00-32.0); MEAN CORPUSCULAR HGB CONC 33.5 g/dl (32.0-36.0); PLATELET COUNT 155 K/uL (150-450); RED BLOOD COUNT 3.34 M/uL (4.00-6.00); RED CELL DISTRIBUTION WIDTH 16.9 % (11.5-14.5)
[2023-09-04 06:08] LABS: HEMOGLOBIN 10.4 g/dL (13-16.00); MEAN CELL VOLUME 94.9 fL (80.0-100.00); MEAN CORPUSCULAR HEMOGLOBIN 31.8 pg (27.00-32.0); MEAN CORPUSCULAR HGB CONC 33.5 g/dl (32.0-36.0); PLATELET COUNT 172 K/uL (150-450); RED BLOOD COUNT 3.26 M/uL (4.00-6.00)
[2023-09-04 06:48] LABS: ALBUMIN 2.1 gm/dL (3.4-5.0); BILIRUBIN TOTAL 1.77 mg/dL (0.3-1.2); CALCIUM 8.1 mg/dL (8.5-10.1); CREATININE SERUM 2.78 mg/dL (0.70-1.30); GFR 22.57; GLOBULINA 3.2 G/DL (2.4-3.5); MAGNESIUM 2.3 mg/dL (1.8-2.4); PHOSPHOROUS 3.9 mg/dL (2.5-4.9); TOTAL PROTEIN 5.3 gm/dL (6.4-8.2)
[2023-09-04 06:51] LABS: C-REACTIVE PROTEIN 10.8 MG/DL (0.00-0.29)
[2023-09-04] MEDS ORDERED: FAMOtidine 40 MG TABLET PO SCH (09:00)
[2023-09-04] MEDS ORDERED: QUETIAPINE FUMARATE 25 MG TABLET PO SCH (21:00)
[2023-09-05] MEDS ORDERED: PREDNISONE 5 MG TABLET PO SCH (09:00)
[2023-09-05] MEDS ORDERED: FLUCONAZOLE IN NACL,ISO-OSM 2 MG/ML ML IV ONE (17:30)
[2023-09-06] MEDS ORDERED: FLUCONAZOLE IN NACL,ISO-OSM 2 MG/ML ML IV SCH (17:00)
[2023-09-07 06:29] LABS: HEMATOCRIT 32.6 % (39.0-48.0); HEMOGLOBIN 10.6 g/dL (13-16.00); MEAN CELL VOLUME 96.5 fL (80.0-100.00); MEAN CORPUSCULAR HEMOGLOBIN 31.3 pg (27.00-32.0); MEAN CORPUSCULAR HGB CONC 32.4 g/dl (32.0-36.0); PLATELET COUNT 169 K/uL (150-450); RED BLOOD COUNT 3.38 M/uL (4.00-6.00); RED CELL DISTRIBUTION WIDTH 17.6 % (11.5-14.5)
[2023-09-07 07:33] LABS: ALBUMIN 1.9 gm/dL (3.4-5.0); BILIRUBIN TOTAL 1.4 mg/dL (0.3-1.2); CALCIUM 7.7 mg/dL (8.5-10.1); CREATININE SERUM 3.21 mg/dL (0.70-1.30); GFR 19.12; GLOBULINA 3.4 G/DL (2.4-3.5); PHOSPHOROUS 3.8 mg/dL (2.5-4.9); POTASSIUM 3.9 mEq/L (3.5-5.1); TOTAL PROTEIN 5.3 gm/dL (6.4-8.2)
[2023-09-07 08:30] LABS: C-REACTIVE PROTEIN 7.95 MG/DL (0.00-0.29)
[2023-09-09] MEDS ORDERED: QUETIAPINE FUMARATE 25 MG TABLET PO SCH ×2 (21:00→21:13)
[2023-09-10 11:23] LABS: ALBUMIN 2.1 gm/dL (3.4-5.0); BILIRUBIN TOTAL 1.02 mg/dL (0.3-1.2); CALCIUM 8.3 mg/dL (8.5-10.1); CREATININE SERUM 3.37 mg/dL (0.70-1.30); GFR 18.08; GLOBULINA 3.7 G/DL (2.4-3.5); POTASSIUM 3.74 mEq/L (3.5-5.1); TOTAL PROTEIN 5.8 gm/dL (6.4-8.2)
[2023-09-11 06:47] LABS: HEMATOCRIT 29.9 % (39.0-48.0); MEAN CELL VOLUME 97.8 fL (80.0-100.00); MEAN CORPUSCULAR HEMOGLOBIN 32.9 pg (27.00-32.0); MEAN CORPUSCULAR HGB CONC 33.6 g/dl (32.0-36.0); PLATELET COUNT 158 K/uL (150-450); RED BLOOD COUNT 3.05 M/uL (4.00-6.00); RED CELL DISTRIBUTION WIDTH 18.1 % (11.5-14.5)
[2023-09-12] MEDS ORDERED: NYSTATIN 30 GM,SILVER SULFADIAZINE 50 GM,ZINC OXIDE 30 GM TOP SCH (09:00)
[2023-09-12] MEDS ORDERED: NYSTATIN 30 GM CREAM.GM. TOP SCH (09:00)
[2023-09-12] MEDS ORDERED: SILVER SULFADIAZINE 50 GM JAR TOP SCH (09:00)
[2023-09-12] MEDS ORDERED: ZINC OXIDE 30 GM TUBE TOP SCH (09:00)
== END 2023-09-12 21:11 | disposition designated cancer center or children's hospital (05) | DRG 870 ==
LOC: ER 12:27 → MEDI 19:29 → ICU-2 19:29 → ICU 08-20 19:41 → MEDI 08-26 15:18 → ICUI 08-26 15:19 → MEDI 08-26 15:23 → MEDJ 08-28 16:34 → MEDI 08-28 21:38
PROVIDERS: General Practice; Internal Medicine; Internal Medicine Endocrinology, Diabetes & Metabolism; Internal Medicine Infectious Disease; Internal Medicine Nephrology; Internal Medicine Pulmonary Disease; Radiology Vascular & Interventional Radiology; ADMIT Internal Medicine; ATTEND Internal Medicine
PROC: BW24ZZZ Computerized Tomography (CT Scan) of Chest and Abdomen (ICD-10-PCS; 2023-08-19)
PROC: B24BYZZ Ultrasonography of Heart with Aorta using Other Contrast (ICD-10-PCS; 2023-08-19)
PROC: 5A1955Z Respiratory Ventilation, Greater than 96 Consecutive Hours (ICD-10-PCS; principal; 2023-08-20)
PROC: 0BH18EZ Insertion of Endotracheal Airway into Trachea, Via Natural or Artificial Opening Endoscopic (ICD-10-PCS; 2023-08-20)
PROC: BW28ZZZ Computerized Tomography (CT Scan) of Head (ICD-10-PCS; 2023-08-20)
PROC: 0W993ZZ Drainage of Right Pleural Cavity, Percutaneous Approach (ICD-10-PCS; 2023-08-22)
PROC: 0JHF3XZ Insertion of Tunneled Vascular Access Device into Left Upper Arm Subcutaneous Tissue and Fascia, Percutaneous Approach (ICD-10-PCS; 2023-08-22)
PROC: 5A1D70Z Performance of Urinary Filtration, Intermittent, Less than 6 Hours Per Day (ICD-10-PCS; 2023-08-22)
PROC: 05HM33Z Insertion of Infusion Device into Right Internal Jugular Vein, Percutaneous Approach (ICD-10-PCS; 2023-08-25)
PROC: 4A12X4Z Monitoring of Cardiac Electrical Activity, External Approach (ICD-10-PCS; 2023-08-26)
PROC: 5A1D70Z Performance of Urinary Filtration, Intermittent, Less than 6 Hours Per Day (ICD-10-PCS; 2023-08-27)
PROC: 05PY33Z Removal of Infusion Device from Upper Vein, Percutaneous Approach (ICD-10-PCS; 2023-08-28)
PROC: 5A1D70Z Performance of Urinary Filtration, Intermittent, Less than 6 Hours Per Day (ICD-10-PCS; 2023-08-29)
PROC: 5A1D70Z Performance of Urinary Filtration, Intermittent, Less than 6 Hours Per Day (ICD-10-PCS; 2023-09-01)
PROC: 30233N1 Transfusion of Nonautologous Red Blood Cells into Peripheral Vein, Percutaneous Approach (ICD-10-PCS; 2023-09-01)
PROC: BW21ZZZ Computerized Tomography (CT Scan) of Abdomen and Pelvis (ICD-10-PCS; 2023-09-02)
PROC: 5A1D70Z Performance of Urinary Filtration, Intermittent, Less than 6 Hours Per Day (ICD-10-PCS; 2023-09-03)
PROC: 5A1D70Z Performance of Urinary Filtration, Intermittent, Less than 6 Hours Per Day (ICD-10-PCS; 2023-09-05)
PROC: 5A1D70Z Performance of Urinary Filtration, Intermittent, Less than 6 Hours Per Day (ICD-10-PCS; 2023-09-12)
DX: A41.9 Sepsis, unspecified organism (principal); J18.9 Pneumonia, unspecified organism; J96.00 Acute respiratory failure, unspecified whether with hypoxia or hypercapnia; E87.20 Acidosis, unspecified; J90 Pleural effusion, not elsewhere classified; E87.29 Other acidosis; J44.1 Chronic obstructive pulmonary disease with (acute) exacerbation; N17.9 Acute kidney failure, unspecified; I50.9 Heart failure, unspecified; E11.65 Type 2 diabetes mellitus with hyperglycemia; Z79.4 Long term (current) use of insulin; I48.91 Unspecified atrial fibrillation; E03.9 Hypothyroidism, unspecified; L97.509 Non-pressure chronic ulcer of other part of unspecified foot with unspecified severity; D72.829 Elevated white blood cell count, unspecified; D64.9 Anemia, unspecified; B95.7 Other staphylococcus as the cause of diseases classified elsewhere

== ENCOUNTER 2024-03-04 08:23 | Outpatient (CLI) | payer OTHER | END 2024-03-04 08:36 | disposition home or self-care (01) | LOC: TOM 08:23 | PROVIDERS: ATTEND Internal Medicine Nephrology | DX: N18.6 End stage renal disease (principal) ==